=== PATIENT | male | born 1970 | race Asian ===

== ENCOUNTER 2017-03-01 10:02 | Emergency (ER) | payer MEDICAID ==
[~2017-03-01] VITALS: Ht 165.1 cm; Wt 95.0 kg
[~2017-03-01 10:02] MED LIST: FLO0.4C PO; ZOF4T PO
[2017-03-01 10:10] VITALS: BP 166/112
[2017-03-01] MEDS ORDERED: TOBR5DRO57 LEFTEYE (10:40)
[2017-03-01] MEDS ORDERED: proparacaine 0.5% ophthalmic drops 15ml LEFTEYE ONE (10:40)
== END 2017-03-01 10:51 | disposition home or self-care (01) ==
LOC: ER 10:03
DX: S05.02XA Injury of conjunctiva and corneal abrasion without foreign body, left eye, initial encounter (principal); Z79.899 Other long term (current) drug therapy; Y29.XXXA Contact with blunt object, undetermined intent, initial encounter; Y93.89 Activity, other specified; Y92.89 Other specified places as the place of occurrence of the external cause; Y99.8 Other external cause status
CPT/HCPCS: 99283

== ENCOUNTER 2017-09-05 12:49 | Emergency (ER) | payer MEDICAID ==
[~2017-09-05] VITALS: Ht 165.1 cm; Wt 95.5 kg
[2017-09-05 12:57] VITALS: BP 157/107
[2017-09-05] MEDS ORDERED: acetaminophen 325mg tablet PO ONE (13:10)
[2017-09-05] MEDS ORDERED: ketorolac trometh inj. 60 MG/2 ML VIAL IM ONE (13:10)
[2017-09-05] MEDS ORDERED: ondansetron 4mg rapidly disintigrating tab PO ONE (13:10)
[2017-09-05 13:23] LABS: BASOPHILS % (AUTO) 0.2 % (0-1); EOSINOPHILS # (AUTO) 0.3 X10'3 (0-0.9); EOSINOPHILS % (AUTO) 3.3 % (0-6); HEMATOCRIT 44.9 % (42.0-52.0); HEMOGLOBIN 15.2 g/dl (14.0-17.9); LYMPHOCYTES # (AUTO) 1.1 X10'3 (1.1-4.8); LYMPHOCYTES % (AUTO) 11.1 % (21-51); MEAN CORPUSCULAR HEMOGLOBIN 28.7 PG (27.0-31.0); MEAN CORPUSCULAR HGB CONC 33.8 % (33.0-36.5); MONOCYTES # (AUTO) 0.5 X10'3 (0-0.9); MONOCYTES % (AUTO) 4.8 % (2-12); NEUTROPHILS # (AUTO) 8.2 X10'3 (1.8-7.7); NEUTROPHILS % (AUTO) 80.6 % (42-75); PLATELET COUNT 230 X10'3 (140-440); RED BLOOD COUNT 5.28 X10'6 (4.70-6.10); RED CELL DISTRIBUTION WIDTH 14.8 % (11.5-14.5); WHITE BLOOD COUNT 10.2 X10'3 (4.5-11.0)
[2017-09-05 13:31] LABS: CLARITY,URINE SLIGHTLY CLOUDY (Clear); GLUCOSE, URINE NEGATIVE (Neg); KETONES,URINE NEGATIVE (Neg); LEUKOCYTE ESTERASE ,URINE NEGATIVE (Neg); NITRITES, URINE NEGATIVE (Neg); OCCULT BLOOD,URINE LARGE (Neg); PH,URINE 5.5 (4.8-8.0); PROTEIN,URINE TRACE mg/dl (Neg); UROBILINOGEN,URINE 0.2 E.U/dL (0.2-1.0)
[2017-09-05 13:33] LABS: COLOR,URINE YELLOW (Yellow); UA COLLECTION TYPE VOIDED
[2017-09-05 13:36] LABS: ALANINE AMINOTRANSFERASE 62 U/L (12-78); ALBUMIN 3.8 G/DL (3.4-5.0); ALBUMIN/GLOBULIN RATIO 0.7 (1.1-1.5); ALKALINE PHOSPHATASE 86 IU/L (46-116); ANION GAP 9 (8-16); ASPARTATE AMINO TRANSFERASE 42 U/L (10-37); BILIRUBIN,TOTAL 0.5 MG/DL (0.1-1.0); BLOOD UREA NITROGEN 20 MG/DL (7-18); CALCIUM 9.1 MG/DL (8.5-10.1); CHLORIDE 104 MMOL/L (99-107); CREATININE 1.66 MG/DL (0.60-1.10); GLUCOSE 123 MG/DL (70-104); POTASSIUM 4.4 MMOL/L (3.5-5.1); SODIUM 142 MMOL/L (135-145); TOTAL CARBON DIOXIDE 28.8 MMOL/L (24-32); TOTAL PROTEIN 9.3 G/DL (6.4-8.2); eGFR 44 ML/MIN
[2017-09-05 13:39] LABS: BACTERIA,URINE NONE SEEN /HPF (Neg); RBC,URINE TNTC /HPF (0-2); SQUAMOUS EPITHELIAL CELL,UR FEW /LPF (FEW)
[2017-09-05] MEDS ORDERED: ONDA8TAB9 PO (13:56)
[2017-09-05] MEDS ORDERED: HYDR-3965 PO (13:56)
== END 2017-09-05 14:22 | disposition home or self-care (01) ==
LOC: ER 12:49
DX: N23 Unspecified renal colic (principal); I10 Essential (primary) hypertension; Z90.49 Acquired absence of other specified parts of digestive tract; Z87.442 Personal history of urinary calculi; Z79.899 Other long term (current) drug therapy
CPT/HCPCS: 36415; 80053; 81001; 85025; 85610; 87088; 96372; 99284; J1885

== ENCOUNTER 2017-09-11 08:41 | Emergency (ER) | payer MEDICAID ==
[~2017-09-11] VITALS: Ht 165.1 cm; Wt 94.7 kg
[~2017-09-11 08:41] MED LIST changes: +HYDR-3965 PO; +ONDA8TAB9 PO
[2017-09-11 09:05] LABS: CLARITY,URINE CLOUDY (Clear); COLOR,URINE YELLOW (Yellow); GLUCOSE, URINE NEGATIVE (Neg); KETONES,URINE NEGATIVE (Neg); LEUKOCYTE ESTERASE ,URINE NEGATIVE (Neg); NITRITES, URINE POSITIVE (Neg); OCCULT BLOOD,URINE LARGE (Neg); PH,URINE 5.5 (4.8-8.0); PROTEIN,URINE TRACE mg/dl (Neg); UROBILINOGEN,URINE 0.2 E.U/dL (0.2-1.0)
[2017-09-11 09:07] LABS: UA COLLECTION TYPE VOIDED
[2017-09-11 09:13] LABS: BACTERIA,URINE FEW /HPF (Neg); MUCUS STRANDS NONE SEEN /LPF (Neg); RBC,URINE TNTC /HPF (0-2); SQUAMOUS EPITHELIAL CELL,UR NONE SEEN /LPF (FEW); WBC,URINE 0-4 /HPF (0-4)
[2017-09-11] MEDS ORDERED: ketorolac trometh. 30mg/ml inj. IM ONE (11:05)
[2017-09-11] MEDS ORDERED: tamsulosin 0.4mg capsule PO ONE (11:05)
[2017-09-11] MEDS ORDERED: FLO0.4C PO (11:07)
[2017-09-11] MEDS ORDERED: HYDR-3965 PO (11:07)
[2017-09-11 11:40] VITALS: BP 133/93
== END 2017-09-11 11:41 | disposition home or self-care (01) ==
LOC: ER 08:42
DX: N20.0 Calculus of kidney (principal); R10.31 Right lower quadrant pain; I10 Essential (primary) hypertension; Z90.49 Acquired absence of other specified parts of digestive tract; Z87.442 Personal history of urinary calculi; Z79.899 Other long term (current) drug therapy
CPT/HCPCS: 74176; 81001; 87088; 96372; 99285; J1885

== ENCOUNTER 2018-11-04 09:43 | Emergency (ER) | payer MEDICAID ==
[~2018-11-04] VITALS: Ht 165.1 cm; Wt 96.0 kg
[~2018-11-04 09:43] MED LIST changes: -HYDR-3965 PO; +HYDR-4383 PO; +IBUP-1986 PO
[2018-11-04] MEDS ORDERED: tamsulosin 0.4mg capsule PO ONE (10:15)
[2018-11-04] MEDS ORDERED: normal saline 1000ML IV soln IVB ONE (10:15)
[2018-11-04] MEDS ORDERED: ketorolac trometh. 30mg/ml inj. IV ONE (10:15)
[2018-11-04 10:24] LABS: CLARITY,URINE CLEAR (Clear); COLOR,URINE YELLOW (Yellow); GLUCOSE, URINE NEGATIVE (Neg); KETONES,URINE NEGATIVE (Neg); LEUKOCYTE ESTERASE ,URINE NEGATIVE (Neg); NITRITES, URINE NEGATIVE (Neg); OCCULT BLOOD,URINE LARGE (Neg); PH,URINE 5.5 (4.8-8.0); PROTEIN,URINE NEGATIVE (Neg); UROBILINOGEN,URINE 0.2 E.U/dL (0.2-1.0)
--- NOTE | 2018-11-04 10:30 | NUR ---
PT TO CT
[2018-11-04 10:38] LABS: UA COLLECTION TYPE CLN CATCH MIDSTREAM
[2018-11-04 10:39] LABS: BACTERIA,URINE NONE SEEN /HPF (Neg); MUCUS STRANDS NONE SEEN /LPF (Neg); RBC,URINE 20-50 /HPF (0-2); SQUAMOUS EPITHELIAL CELL,UR NONE SEEN /LPF (FEW); WBC,URINE NONE SEEN /HPF (0-4)
[2018-11-04 10:40] LABS: BASOPHILS % (AUTO) 0.3 % (0-1); EOSINOPHILS # (AUTO) 0.3 X10'3 (0-0.9); EOSINOPHILS % (AUTO) 4.3 % (0-6); LYMPHOCYTES % (AUTO) 13.8 % (21-51); MEAN CORPUSCULAR HEMOGLOBIN 28.3 PG (27.0-31.0); MEAN CORPUSCULAR HGB CONC 32.7 g/dL (33.0-36.5); MEAN CORPUSCULAR VOLUME 86.6 FL (78-98); MEAN PLATELET VOLUME 7.5 FL (7.4-10.4); MONOCYTES # (AUTO) 0.5 X10'3 (0-0.9); MONOCYTES % (AUTO) 6.3 % (2-12); NEUTROPHILS # (AUTO) 5.5 X10'3 (1.8-7.7); NEUTROPHILS % (AUTO) 75.3 % (42-75); PLATELET COUNT 200 X10'3 (140-440); RED BLOOD COUNT 4.97 X10'6 (4.70-6.10); RED CELL DISTRIBUTION WIDTH 15.4 % (11.5-14.5); WHITE BLOOD COUNT 7.3 X10'3 (4.5-11.0)
[2018-11-04 10:58] LABS: ALANINE AMINOTRANSFERASE 46 U/L (12-78); ALBUMIN 3.5 G/DL (3.4-5.0); ALBUMIN/GLOBULIN RATIO 0.6 (1.1-1.5); ALKALINE PHOSPHATASE 78 IU/L (46-116); ANION GAP 9 (8-16); ASPARTATE AMINO TRANSFERASE 25 U/L (10-37); BILIRUBIN,TOTAL 0.3 MG/DL (0.1-1.0); BLOOD UREA NITROGEN 32 MG/DL (7-18); BUN/CREATININE RATIO 15.4 (5.4-32.0); CALCIUM 8.8 MG/DL (8.5-10.1); CHLORIDE 106 MMOL/L (99-107); CREATININE 2.08 MG/DL (0.60-1.10); GLUCOSE 199 MG/DL (70-104); POTASSIUM 4.2 MMOL/L (3.5-5.1); SODIUM 139 MMOL/L (135-145); TOTAL CARBON DIOXIDE 24.2 MMOL/L (24-32); TOTAL PROTEIN 8.9 G/DL (6.4-8.2); eGFR 34 ML/MIN
[2018-11-04] MEDS ORDERED: FLO0.4C PO (11:10)
[2018-11-04] MEDS ORDERED: IBUP-1986 PO (11:10)
[2018-11-04] MEDS ORDERED: HYDR-4353 PO (11:10)
[2018-11-04 11:29] VITALS: BP 136/92
== END 2018-11-04 11:30 | disposition home or self-care (01) ==
LOC: ER 09:43
DX: N13.2 Hydronephrosis with renal and ureteral calculous obstruction (principal); I10 Essential (primary) hypertension; Z90.49 Acquired absence of other specified parts of digestive tract; Z79.899 Other long term (current) drug therapy
CPT/HCPCS: 36415; 74176; 80053; 81001; 85025; 96374; 99284; J1885; J7030

== ENCOUNTER 2019-05-26 09:02 | Emergency (ER) | payer MEDICAID ==
[~2019-05-26] VITALS: Ht 165.1 cm; Wt 93.0 kg
[2019-05-26] MEDS ORDERED: normal saline 1000ML IV soln IVB ONE (09:30)
[2019-05-26] MEDS ORDERED: ondansetron/PF 4mg/2ml inj IV ONE (09:30)
[2019-05-26] MEDS ORDERED: morphine 4 MG/ML inj SYRINge IV PRN (09:30)
[2019-05-26] MEDS ORDERED: ketorolac trometh. 30mg/ml inj. IV ONE (09:30)
[2019-05-26 09:35] LABS: CLARITY,URINE SLIGHTLY CLOUDY (Clear); COLOR,URINE YELLOW (Yellow); GLUCOSE, URINE NEGATIVE (Neg); KETONES,URINE NEGATIVE (Neg); LEUKOCYTE ESTERASE ,URINE NEGATIVE (Neg); NITRITES, URINE NEGATIVE (Neg); OCCULT BLOOD,URINE LARGE (Neg); PH,URINE 5.5 (4.8-8.0); PROTEIN,URINE 100 mg/dl (Neg); UROBILINOGEN,URINE 0.2 E.U/dL (0.2-1.0)
[2019-05-26 09:36] LABS: UA COLLECTION TYPE VOIDED
[2019-05-26 09:42] LABS: FINE GRANULAR CAST 0-3 /LPF (NEGATIVE)
[2019-05-26 09:49] LABS: RBC,URINE TNTC /HPF (0-2)
[2019-05-26 09:50] LABS: BACTERIA,URINE 1+ /HPF (Neg); SQUAMOUS EPITHELIAL CELL,UR FEW /LPF (FEW)
[2019-05-26 09:51] LABS: URIC ACID CRYSTALS 3+ /HPF (NEGATIVE)
[2019-05-26 09:57] LABS: BASOPHILS % (AUTO) 0.2 % (0-1); EOSINOPHILS # (AUTO) 0.1 X10'3 (0-0.9); EOSINOPHILS % (AUTO) 1.1 % (0-6); HEMATOCRIT 48.6 % (42.0-52.0); HEMOGLOBIN 15.7 g/dl (14.0-17.9); LYMPHOCYTES # (AUTO) 0.7 X10'3 (1.1-4.8); LYMPHOCYTES % (AUTO) 7.7 % (21-51); MEAN CORPUSCULAR HEMOGLOBIN 28.3 PG (27.0-31.0); MEAN CORPUSCULAR HGB CONC 32.3 g/dL (33.0-36.5); MEAN CORPUSCULAR VOLUME 87.6 FL (78-98); MEAN PLATELET VOLUME 8.4 FL (7.4-10.4); MONOCYTES # (AUTO) 0.6 X10'3 (0-0.9); MONOCYTES % (AUTO) 6.3 % (2-12); NEUTROPHILS # (AUTO) 7.6 X10'3 (1.8-7.7); NEUTROPHILS % (AUTO) 84.7 % (42-75); PLATELET COUNT 198 X10'3 (140-440); RED BLOOD COUNT 5.55 X10'6 (4.70-6.10); RED CELL DISTRIBUTION WIDTH 15.3 % (11.5-14.5)
[2019-05-26 10:31] LABS: ALANINE AMINOTRANSFERASE 61 U/L (12-78); ALBUMIN 3.8 G/DL (3.4-5.0); ALBUMIN/GLOBULIN RATIO 0.7 (1.1-1.5); ALKALINE PHOSPHATASE 84 IU/L (46-116); ANION GAP 6 (8-16); ASPARTATE AMINO TRANSFERASE 43 U/L (10-37); BILIRUBIN,TOTAL 0.6 MG/DL (0.1-1.0); BLOOD UREA NITROGEN 24 MG/DL (7-18); BUN/CREATININE RATIO 13.7 (5.4-32.0); CHLORIDE 106 MMOL/L (99-107); CREATININE 1.75 MG/DL (0.60-1.10); GLUCOSE 135 MG/DL (70-104); LIPASE 206 U/L (73-393); POTASSIUM 3.8 MMOL/L (3.5-5.1); SODIUM 139 MMOL/L (135-145); TOTAL CARBON DIOXIDE 27.4 MMOL/L (24-32); TOTAL PROTEIN 9.4 G/DL (6.4-8.2); eGFR 41 ML/MIN
[2019-05-26 10:55] VITALS: BP 93/65
[2019-05-26] MEDS ORDERED: FLO0.4C PO (11:04)
[2019-05-26] MEDS ORDERED: HYDR-3965 PO (11:04)
== END 2019-05-26 10:58 | disposition home or self-care (01) ==
LOC: ER 09:03
DX: R10.84 Generalized abdominal pain (principal); R11.2 Nausea with vomiting, unspecified; I10 Essential (primary) hypertension; Z87.442 Personal history of urinary calculi; Z90.89 Acquired absence of other organs
CPT/HCPCS: 36415; 80053; 81001; 83690; 85025; 87088; 96374; 96375; 99284; J1885; J2270; J2405; J7030

== ENCOUNTER 2019-11-05 19:32 | Emergency (ER) | payer MEDICAID ==
[~2019-11-05] VITALS: Ht 165.1 cm; Wt 90.9 kg
[2019-11-05 20:55] LABS: BASOPHILS % (AUTO) 0.5 % (0-1); EOSINOPHILS # (AUTO) 0.3 X10'3 (0-0.9); EOSINOPHILS % (AUTO) 3.3 % (0-6); HEMOGLOBIN 13.9 g/dl (14.0-17.9); LYMPHOCYTES # (AUTO) 1.3 X10'3 (1.1-4.8); LYMPHOCYTES % (AUTO) 14.6 % (21-51); MEAN CORPUSCULAR HEMOGLOBIN 28.5 PG (27.0-31.0); MEAN CORPUSCULAR HGB CONC 32.4 g/dL (33.0-36.5); MEAN CORPUSCULAR VOLUME 88.2 FL (78-98); MEAN PLATELET VOLUME 7.8 FL (7.4-10.4); MONOCYTES # (AUTO) 0.6 X10'3 (0-0.9); MONOCYTES % (AUTO) 6.9 % (2-12); NEUTROPHILS # (AUTO) 6.6 X10'3 (1.8-7.7); NEUTROPHILS % (AUTO) 74.7 % (42-75); PLATELET COUNT 210 X10'3 (140-440); RED BLOOD COUNT 4.87 X10'6 (4.70-6.10); RED CELL DISTRIBUTION WIDTH 13.9 % (11.5-14.5); WHITE BLOOD COUNT 8.8 X10'3 (4.5-11.0)
[2019-11-05 21:04] LABS: ALANINE AMINOTRANSFERASE 40 U/L (12-78); ALBUMIN 3.6 G/DL (3.4-5.0); ALBUMIN/GLOBULIN RATIO 0.7 (1.1-1.5); ALKALINE PHOSPHATASE 76 IU/L (46-116); ANION GAP 6 (8-16); ASPARTATE AMINO TRANSFERASE 26 U/L (10-37); BILIRUBIN,TOTAL 0.2 MG/DL (0.1-1.0); BLOOD UREA NITROGEN 18 MG/DL (7-18); BUN/CREATININE RATIO 11.7 (5.4-32.0); CALCIUM 8.6 MG/DL (8.5-10.1); CHLORIDE 109 MMOL/L (99-107); CREATININE 1.54 MG/DL (0.60-1.10); GLUCOSE 98 MG/DL (70-104); LIPASE 124 U/L (73-393); POTASSIUM 3.4 MMOL/L (3.5-5.1); SODIUM 143 MMOL/L (135-145); TOTAL CARBON DIOXIDE 28.2 MMOL/L (24-32); TOTAL PROTEIN 8.5 G/DL (6.4-8.2); eGFR 48 ML/MIN
[2019-11-05 21:20] LABS: CLARITY,URINE CLOUDY (Clear); COLOR,URINE YELLOW (Yellow); GLUCOSE, URINE NEGATIVE (Neg); KETONES,URINE NEGATIVE (Neg); LEUKOCYTE ESTERASE ,URINE TRACE (Neg); NITRITES, URINE NEGATIVE (Neg); OCCULT BLOOD,URINE LARGE (Neg); PH,URINE 5.5 (4.8-8.0); PROTEIN,URINE TRACE mg/dl (Neg)
[2019-11-05 21:27] LABS: UA COLLECTION TYPE CLN CATCH MIDSTREAM
[2019-11-05 21:30] LABS: BACTERIA,URINE FEW /HPF (Neg); RBC,URINE TNTC /HPF (0-2); SQUAMOUS EPITHELIAL CELL,UR FEW /LPF (FEW); WBC,URINE 0-4 /HPF (0-4)
[2019-11-05] MEDS ORDERED: morphine 4 MG/ML inj SYRINge IV PRN (21:40)
[2019-11-05] MEDS ORDERED: normal saline 1000ML IV soln IVB ONE (21:40)
[2019-11-05] MEDS ORDERED: ondansetron/PF 4mg/2ml inj IV ONE (21:40)
[2019-11-05] MEDS ORDERED: tamsulosin 0.4mg capsule PO ONE (21:50)
[2019-11-05] MEDS ORDERED: tamsulosin 0.4mg capsule PO SCH (21:50)
[2019-11-05] MEDS ORDERED: FLO0.4C PO (21:53)
[2019-11-05] MEDS ORDERED: HYDR-4353 PO (21:53)
[2019-11-05] MEDS ORDERED: ONDA8TAB6 PO (21:53)
--- NOTE | 2019-11-05 22:21 | NUR ---
MED WAIT. GIVEN PAIN MEDS AND NAUSEA MEDS AND FLOWMAX. AND 1 LITER NS STARTED. PT TO BE DISCHARGED ONCE COMPLETED. WAITING IN PARKING LOT.
[2019-11-05 23:00] VITALS: BP 127/84
== END 2019-11-05 23:19 | disposition home or self-care (01) ==
LOC: ER 19:33
DX: N13.2 Hydronephrosis with renal and ureteral calculous obstruction (principal); R10.31 Right lower quadrant pain; I10 Essential (primary) hypertension; Z87.442 Personal history of urinary calculi; Z90.89 Acquired absence of other organs; Z79.899 Other long term (current) drug therapy
CPT/HCPCS: 36415; 80053; 81001; 83690; 85025; 96361; 96374; 96375; 99284; J2270; J2405; J7030

== ENCOUNTER 2021-07-15 06:29 | Emergency (ER) | payer MEDICAID ==
[~2021-07-15] VITALS: Ht 165.1 cm; Wt 90.9 kg
[~2021-07-15 06:29] MED LIST changes: +ONDA8TAB6 PO
[2021-07-15] MEDS ORDERED: ketorolac trometh. 30mg/ml inj. IM ONE (08:40)
[2021-07-15 09:57] LABS: CLARITY,URINE CLEAR (Clear); COLOR,URINE YELLOW (Yellow); GLUCOSE, URINE NEGATIVE (Neg); KETONES,URINE NEGATIVE (Neg); LEUKOCYTE ESTERASE ,URINE NEGATIVE (Neg); NITRITES, URINE NEGATIVE (Neg); OCCULT BLOOD,URINE LARGE (Neg); PH,URINE 5.5 (4.8-8.0); PROTEIN,URINE TRACE mg/dl (Neg); UROBILINOGEN,URINE 0.2 E.U/dL (0.2-1.0)
[2021-07-15 10:00] LABS: UA COLLECTION TYPE VOIDED
[2021-07-15 10:03] LABS: WBC,URINE NONE SEEN /HPF (0-4)
[2021-07-15 10:04] LABS: BACTERIA,URINE NONE SEEN /HPF (Neg); HYALINE CASTS 0-3 /LPF (NEGATIVE); MUCUS STRANDS FEW /LPF (Neg); SQUAMOUS EPITHELIAL CELL,UR FEW /LPF (FEW)
[2021-07-15] MEDS ORDERED: FLO0.4C PO (10:56)
[2021-07-15] MEDS ORDERED: HYDR-3965 PO (10:56)
[2021-07-15 11:22] VITALS: BP 118/70
== END 2021-07-15 11:06 | disposition home or self-care (01) ==
LOC: ER 06:29
DX: N23 Unspecified renal colic (principal); I10 Essential (primary) hypertension; Z87.442 Personal history of urinary calculi; Z90.89 Acquired absence of other organs; Z98.890 Other specified postprocedural states; Z79.899 Other long term (current) drug therapy
CPT/HCPCS: 81001; 96372; 99283; J1885

== ENCOUNTER 2022-10-26 11:55 | Emergency (ER) | payer MEDICAID ==
[~2022-10-26] VITALS: Ht 165.1 cm; Wt 95.5 kg
[2022-10-26 14:01] LABS: BILIRUBIN,URINE NEGATIVE (Neg); CLARITY,URINE CLOUDY (Clear); COLOR,URINE RED (Yellow); GLUCOSE, URINE NEGATIVE (Neg); KETONES,URINE NEGATIVE (Neg); LEUKOCYTE ESTERASE ,URINE NEGATIVE (Neg); NITRITES, URINE NEGATIVE (Neg); OCCULT BLOOD,URINE LARGE (Neg); PH,URINE 5.5 (4.8-8.0); PROTEIN,URINE 100 mg/dl (Neg); UROBILINOGEN,URINE 0.2 E.U/dL (0.2-1.0)
[2022-10-26 14:02] LABS: UA COLLECTION TYPE CLN CATCH MIDSTREAM
[2022-10-26 14:26] LABS: BACTERIA,URINE NONE SEEN /HPF (Neg); MUCUS STRANDS NONE SEEN /LPF (Neg); RBC,URINE TNTC /HPF (0-2); SQUAMOUS EPITHELIAL CELL,UR FEW /LPF (FEW); WBC,URINE 0-4 /HPF (0-4)
[2022-10-26 16:23] VITALS: BP 122/70; PULSE 68; RESP 16; TEMP 98; O2SAT 98
== END 2022-10-26 16:24 | disposition home or self-care (01) ==
LOC: ER 11:55
DX: N23 Unspecified renal colic (principal); I10 Essential (primary) hypertension; Z90.49 Acquired absence of other specified parts of digestive tract; Z98.890 Other specified postprocedural states; Z79.899 Other long term (current) drug therapy
CPT/HCPCS: 81001; 85025; 99283

== ENCOUNTER 2024-04-02 08:46 | Day surgery (SDC) | payer MEDICAID ==
[~2024-04-02] VITALS: Ht 165.1 cm; Wt 95.5 kg
[~2024-04-02 08:46] MED LIST changes: +ATOR40TA PO; -FLO0.4C PO; -HYDR-4383 PO; +HYDR12.55 PO; -IBUP-1986 PO; +LOSA25TA41 PO; +METF-436 PO; -ONDA8TAB6 PO; -ONDA8TAB9 PO; -ZOF4T PO
[2024-04-02 08:54] VITALS: BP 147/94; PULSE 63; RESP 18; TEMP 98.4
[2024-04-02] MEDS ORDERED: MIDAZolam 1 MG/ML 5ML VIAL ONE (10:34)
[2024-04-02] MEDS ORDERED: fentaNYL/PF 50MCG/1 ML 2ML syringe ONE (10:34)
[2024-04-02] MEDS ORDERED: propofol inj 20 ML IV ONE (11:09)
[2024-04-02 11:20] VITALS: BP 128/77; PULSE 79; RESP 15; O2SAT 95
[2024-04-02 11:30] VITALS: BP 109/75; PULSE 70; RESP 20; O2SAT 96
[2024-04-02 11:40] VITALS: BP 114/83; PULSE 68; RESP 18; O2SAT 96
[2024-04-02 11:50] VITALS: BP 115/83; PULSE 62; RESP 15; O2SAT 98
== END 2024-04-02 12:13 | disposition home or self-care (01) ==
LOC: GI LAB 08:46
PROVIDERS: ATTEND Internal Medicine Gastroenterology
DX: Z12.11 Encounter for screening for malignant neoplasm of colon (principal); D12.5 Benign neoplasm of sigmoid colon; D12.4 Benign neoplasm of descending colon; K57.30 Diverticulosis of large intestine without perforation or abscess without bleeding; K64.8 Other hemorrhoids; I10 Essential (primary) hypertension; E11.9 Type 2 diabetes mellitus without complications; Z79.84 Long term (current) use of oral hypoglycemic drugs; Z79.899 Other long term (current) drug therapy
CPT/HCPCS: 45380; 45385; 82948; J2250; J2704; J3010; J7030; Z7512; C1889

== ENCOUNTER 2024-06-26 11:52 | Emergency (ER) | payer MEDICAID ==
[~2024-06-26] VITALS: Ht 165.1 cm; Wt 95.5 kg
--- NOTE | 2024-06-26 12:44 | Physician Documentation ---
History of Present Illness ~ Chief Complaint: Urinary Symptoms Stated Complaint: KIDNEY STONES Time Seen by MD: 12:18 Primary Medical Doctor: tammi [facility] Mode of Arrival: POV, Ambulatory HPI 54-year-old male presenting with suprapubic and penile pain since yesterday. Patient states that the pain initially started in his lower abdomen and has now traveled down to his suprapubic area and even his penis. He states that he has a history of kidney stones and this feels exactly like that. He has been urinating and has noticed that his urine has been pink. He otherwise denies any fever, chills, nausea, vomiting or any other associated symptoms. Medication Reconciliation Allergies: Coded Allergies: No Known Allergies (Unverified , 06/26/24) Scheduled Atorvastatin Calcium* (Lipitor*), 1 TABLET PO HS, (Reported) Hydrochlorothiazide (Hydrochlorothiazide), 1 TAB PO DAILY, (Reported) Losartan Potassium (Losartan Potassium), 25 MG PO DAILY, (Reported) Metformin Hcl (Metformin Hcl), 1 TAB PO Q12H, (Reported) Past Medical History Past Medical History: No Pertinent History, Hypertension, Kidney Stones Past Surgical History: abdominal surgery, appendectomy Alcohol Use: Rarely Drug Use: none Lives In: Home Review of Systems All Other Systems at this time: Reviewed and Negative Physical Exam Vital Signs: Temperature: 98.2, Source: Oral, Heart Rate: 82, Respiratory Rate: 20, BP: 135/94, Pulse Oximetry: 94, Weight: 95.450 Oxygen Flow Rate: 0 Physical Exam I have reviewed the triage vitals. CONST: Well developed and well nourished. In no acute distress HENT: Head Atraumatic EYES: Pupils are equal, round and reactive to light. Normal conjunctiva NECK: Normal range of motion. Supple. CARDIO: Normal rate and regular rhythm. No murmurs, rubs, or gallops. S1, S2. PULM/CHEST: No respiratory distress. Lungs clear to auscultation. No wheeze ABD: Soft and nontender. Nondistended. Bowel sounds normal. No guarding. : Exam deferred MSK: No edema. No deformity. NEURO: Alert and oriented to person, place and time. Moving all extremities SKIN: Warm and dry. PSYCH: Normal mood and affect. Good eye contact. Progress Results/Orders Results/Orders Orders - DEHKORDI,BEHRANG H MD Ct Abdomen Pelvis (06/26/24 12:38) Completed Orders - MOE LEACH MD Cbc/Diff (06/26/24 12:07) BMP (06/26/24 12:07) Amylase (06/26/24 12:07) Lipase (06/26/24 12:07) CMP (06/26/24 12:07) Normal Saline 1000ml (Sodium Chloride 10 (06/26/24 12:40) Ketorolac Trometh 30mg/Ml Vial (Toradol (06/26/24 12:40) Ct Abdomen Pelvis (06/26/24 12:38) Tamsulosin Capsule (Flomax Capsule) (06/26/24 12:40) Ua W/Microscopic, Cult If Ind (06/26/24 13:12) Medications Received in ER Medications (Trade) Dose Ordered Sig/Guicho Route PRN Reason Start Time Stop Time Status Last Admin Dose Admin Sodium Chloride 1,000 ml @ 1,000 mls/hr ONCE ONCE IV 06/26/24 12:40 06/26/24 13:39 DC 06/26/24 12:51 1,000 MLS/HR (Toradol inj. 30mg/ml) 30 mg ONCE ONCE IV 06/26/24 12:40 06/26/24 12:41 DC 06/26/24 12:51 30 MG (Flomax capsule) 0.4 mg ONCE ONCE PO 06/26/24 12:40 06/26/24 12:41 DC 06/26/24 12:51 0.4 MG Vital Signs 06/26/24 06/26/24 06/26/24 06/26/24 12:12 12:20 12:23 12:51 Temp 98.2 98.2 Pulse 84 82 Resp 18 19 20 16 B/P (MAP) 135/94 135/94 (108) Pulse Ox 95 94 O2 Flow Rate 0 06/26/24 13:38 Temp 98.2 Pulse 71 Resp 23 B/P (MAP) 133/88 (103) Pulse Ox 94 O2 Flow Rate 0 Laboratory Tests Test 06/26/24 12:25 06/26/24 13:12 White Blood Count 5.8 Red Blood Count 4.99 Hemoglobin 14.5 Hematocrit 43.9 Mean Corpuscular Volume 88.1 Mean Corpuscular Hemoglobin 29.1 Mean Corpuscular Hemoglobin Concent 33.1 Red Cell Distribution Width 14.9 H Platelet Count 173 Mean Platelet Volume 8.4 Neutrophils (%) (Auto) 68.4 Lymphocytes (%) (Auto) 17.9 L Monocytes (%) (Auto) 8.2 Eosinophils (%) (Auto) 4.8 Basophils (%) (Auto) 0.7 Neutrophils # (Auto) 3.9 Lymphocytes # (Auto) 1.0 L Monocytes # (Auto) 0.5 Eosinophils # (Auto) 0.3 Basophils # (Auto) 0.0 CBC Comment Sodium Level 142 Potassium Level 3.7 Chloride Level 107 Carbon Dioxide Level 28.5 Anion Gap 7 L Blood Urea Nitrogen 27 H Creatinine 1.53 H Estimated GFR/1.73 m2 47 BUN/Creatinine Ratio 17.6 Glucose Level 144 H Calcium Level 9.0 Total Bilirubin 0.4 Aspartate Amino Transf (AST/SGOT) 39 H Alanine Aminotransferase (ALT/SGPT) 75 Alkaline Phosphatase 66 Total Protein 8.1 Albumin 3.3 L Globulin 4.8 H Albumin/Globulin Ratio 0.7 L Amylase Level 141 H Lipase 49 Chemistry Comments Urine Specimen Description Cln catch midstream Urine Color Yellow Urine Clarity Slightly cloudy Urine pH 6.0 Urine Specific Mcguffey 1.025 Urine Protein 100 H Urine Glucose (UA) Negative Urine Ketones Negative Urine Occult Blood Large H Urine Nitrite Negative Urine Bilirubin Negative Urine Urobilinogen 0.2 Urine Leukocyte Esterase Negative Urine RBC Tntc Urine WBC 0-4 Urine Squamous Epithelial Cells None seen Urine Bacteria 1+ Urine Culture Indicated Not ind Volume Urine Centrifuged 10 ml Urine Comment EKG/XRAY/CT/US/VASC/MRI CT : Impression Exam: CT CT ABDOMEN PELVIS History: kidney stones Comparison Study: None Technique: Multidetector spiral CT of the abdomen and pelvis was performed from lung bases to pubic symphysis. Imaging was performed without IV contrast. Axial, coronal and sagittal multiplanar reformats were obtained from the axial data set by the technologist. Radiation dose : Abdomen/Pelvis: CTDIvol 30 mGy, DLP 1673 mGy*cm. Findings: Evaluation of solid organs is limited due to lack of intravenous contrast use. Lung Bases: No acute or significant lung base finding. Normal heart size. No pleural or pericardial effusion. Liver: The liver is normal in size. No focal lesions. Gallbladder and biliary Tree: Unremarkable Spleen: Unremarkable Pancreas: The pancreas is grossly normal in appearance. Adrenal Glands: Unremarkable Kidneys: Punctate bilateral renal calculi. Mild right hydronephrosis and hydroureter with a calculus in the proximal right ureter measuring up to 2 mm. No left hydronephrosis. Left renal cyst. Bladder: Calculus in the dependent bladder measuring up to 3 mm. Bowel: The stomach is grossly normal in appearance. Small bowel and colon are normal in caliber and distribution. The appendix is not visualized; however, no secondary findings of acute appendicitis identified. Colonic diverticulosis. Ascites: Absent Lymphadenopathy: No mesenteric, retroperitoneal or periportal lymphadenopathy. Abdominal wall and Mesentery: Unremarkable. Vasculature: The visualized abdominal aorta is normal in size and caliber. Evaluation of abdominal and pelvic vessels is limited due to lack of intravenous contrast. Pelvic Organs: Unremarkable Musculoskeletal: No aggressive focal bony lesions, acute fractures or dislocation. IMPRESSION: 1. Mildly obstructing calculus in the proximal right ureter measuring up to 2 mm associated with mild right hydronephrosis and hydroureter. Other bilateral punctate nonobstructive renal calculi. Calculus in the bladder. Urology evaluation is recommended. Left renal cyst. Sigmoid diverticulosis. Radiation optimization: All CT scans at this facility use at least one of these dose optimization techniques: Automated exposure control mA and/or kV adjustment per patient size (includes targeted exams where dose is matched to clinical indication) or iterative reconstruction. HS:Y Medical Decision Making Additional Comment 54-year-old male presenting with pelvic pain secondary to a right ureteral calculus. This was seen on CT imaging. The stone is located in the right upper ureter but is only 2 mm and should pass on its own. For pain patient was medicated with 30 mg of IV ketorolac. He was also given 1 L of IV normal saline as well as 0.4 mg of tamsulosin. At this point the patient is pain-free. I educated the patient regarding the findings of his workup. I advised that given the size of the stone that should pass on its own but did recommend that he drink plenty of fluids and monitor for passage of the stone. I will also prescribe him Flomax to take for the next several days to facilitate further passing of the stone. Advised to monitor symptoms for improvement and resolution. Follow up with Urology as an outpatient. Return to the ED with any acutely worsening symptoms. Departure Disposition: HOME / SELF CARE / HOMELESS Impression: Primary Impression: Renal colic Condition: Improved Additional Instructions: Take medications as prescribed. Drink plenty of fluids. Monitor for passage of stone. Follow up with Urology should pain not improve. Return to the ED with any acutely worsening symptoms. Referrals: NO PRIMARY CARE PROVIDER (PCP) Prescriptions Hydrocodone Bit/Acetaminophen 5/325 MG ([place] 5/325 MG) 5 Mg/325 Mg Tablet 1 TAB PO Q12H PRN PRN for pain for 5 Days, #10 TAB Prov: MOE LEACH MD 06/26/24 Ibuprofen (Ibuprofen) 600 Mg Tablet 1 TAB PO Q8H for pain for 10 Days, #30 TAB 0 Refills with food Prov: MOE LEACH MD 06/26/24 Tamsulosin Hcl* (Flomax*) 0.4 Mg Cap.sr.24h 1 CAP PO DAILY for 30 Days, #30 CAP Prov: MOE LEACH MD 06/26/24 Signature Scribe Signature: 1 Attestation: 1 MOE LEACH MD Jun 26, 2024 12:44
[2024-06-26 12:47] LABS: BASOPHILS % (AUTO) 0.7 % (0-1); EOSINOPHILS # (AUTO) 0.3 X10'3 (0-0.9); EOSINOPHILS % (AUTO) 4.8 % (0-6); HEMATOCRIT 43.9 % (42.0-52.0); HEMOGLOBIN 14.5 g/dl (14.0-17.9); LYMPHOCYTES % (AUTO) 17.9 % (21-51); MEAN CORPUSCULAR HEMOGLOBIN 29.1 PG (27.0-31.0); MEAN CORPUSCULAR HGB CONC 33.1 g/dL (33.0-36.5); MEAN CORPUSCULAR VOLUME 88.1 FL (78-98); MEAN PLATELET VOLUME 8.4 FL (7.4-10.4); MONOCYTES # (AUTO) 0.5 X10'3 (0-0.9); MONOCYTES % (AUTO) 8.2 % (2-12); NEUTROPHILS # (AUTO) 3.9 X10'3 (1.8-7.7); NEUTROPHILS % (AUTO) 68.4 % (42-75); PLATELET COUNT 173 X10'3 (140-440); RED BLOOD COUNT 4.99 X10'6 (4.70-6.10); RED CELL DISTRIBUTION WIDTH 14.9 % (11.5-14.5); WHITE BLOOD COUNT 5.8 X10'3 (4.5-11.0)
[2024-06-26] MEDS: ketorolac trometh 30MG/ML vial 30 MG/ML VIAL IV ONE (12:51)
[2024-06-26] MEDS: tamsulosin 0.4mg capsule PO ONE (12:51)
[2024-06-26] MEDS: normal saline 1000ml 1,000 ML IV ONE (12:51)
[2024-06-26 12:58] LABS: ALANINE AMINOTRANSFERASE 75 U/L (12-78); ALBUMIN 3.3 G/DL (3.4-5.0); ALBUMIN/GLOBULIN RATIO 0.7 (1.1-1.5); ALKALINE PHOSPHATASE 66 IU/L (46-116); AMYLASE 141 U/L (25-115); ANION GAP 7 (8-16); ASPARTATE AMINO TRANSFERASE 39 U/L (10-37); BILIRUBIN,TOTAL 0.4 MG/DL (0.1-1.0); BLOOD UREA NITROGEN 27 MG/DL (7-18); BUN/CREATININE RATIO 17.6 (10.0-20.0); CHLORIDE 107 MMOL/L (99-107); CREATININE 1.53 MG/DL (0.60-1.10); GLUCOSE 144 MG/DL (70-104); LIPASE 49 U/L (16-77); POTASSIUM 3.7 MMOL/L (3.5-5.1); SODIUM 142 MMOL/L (135-145); TOTAL CARBON DIOXIDE 28.5 MMOL/L (24-32); TOTAL PROTEIN 8.1 G/DL (6.4-8.2); eCRCL 47 ML/MIN; eGFR 47 ML/MIN
[2024-06-26 13:27] LABS: BILIRUBIN,URINE NEGATIVE (Neg); CLARITY,URINE SLIGHTLY CLOUDY (Clear); COLOR,URINE YELLOW (Yellow); GLUCOSE, URINE NEGATIVE (Neg); KETONES,URINE NEGATIVE (Neg); LEUKOCYTE ESTERASE ,URINE NEGATIVE (Neg); NITRITES, URINE NEGATIVE (Neg); OCCULT BLOOD,URINE LARGE (Neg); PROTEIN,URINE 100 mg/dl (Neg); UROBILINOGEN,URINE 0.2 E.U/dL (0.2-1.0)
[2024-06-26 13:37] LABS: UA COLLECTION TYPE CLN CATCH MIDSTREAM
[2024-06-26 13:38] VITALS: TEMP 98.2
[2024-06-26 13:43] LABS: RBC,URINE TNTC /HPF (0-2); WBC,URINE 0-4 /HPF (0-4)
[2024-06-26 13:44] LABS: BACTERIA,URINE 1+ /HPF (Neg); SQUAMOUS EPITHELIAL CELL,UR NONE SEEN /LPF (FEW)
--- NOTE | 2024-06-26 14:09 | RADIOLOGY REPORT ---
Exam: CT CT ABDOMEN PELVIS History: kidney stones Comparison Study: None Technique: Multidetector spiral CT of the abdomen and pelvis was performed from lung bases to pubic symphysis. Imaging was performed without IV contrast. Axial, coronal and sagittal multiplanar reform ats were obtained from the axial data set by the technologist. Radiation dose : Abdomen/Pelvis: CTDIvol 30 mGy, DLP 1673 mGy*cm. Findings: Evaluation of solid organs is limited due to lack of intravenous contrast use. Lung Bases: No acute or significant lung base finding. Normal heart size. No pleural or pericardial effusion. Liver: The liver is normal in size. No focal lesions. Gallbladder and biliary Tree: Unremarkable Spleen: Unremarkable Pancreas: The pancreas is grossly normal in appearance. Adrenal Glands: Unremarkable Kidneys: Punctate bilateral renal calculi. Mild right hydronephrosis and hydroureter with a calculus in the proximal right ureter measuring up to 2 mm. No left hydronephrosis. Left renal cyst. Bladder: Calculus in the dependent bladder measuring up to 3 mm. Bowel: The stomach is grossly normal in appearance. Small bowel and colon are normal in caliber and d istribution. The appendix is not visualized; however, no secondary findings of acute appendicitis garrison ntified. Colonic diverticulosis. Ascites: Absent Lymphadenopathy: No mesenteric, retroperitoneal or periportal lymphadenopathy. Abdominal wall and Mesentery: Unremarkable. Vasculature: The visualized abdominal aorta is normal in size and caliber. Evaluation of abdominal a nd pelvic vessels is limited due to lack of intravenous contrast. Pelvic Organs: Unremarkable Musculoskeletal: No aggressive focal bony lesions, acute fractures or dislocation. IMPRESSION: 1. Mildly obstructing calculus in the proximal right ureter measuring up to 2 mm associated with mild right hydronephrosis and hydroureter. Other bilateral punctate nonobstructive renal calculi. Calculu s in the bladder. Urology evaluation is recommended. Left renal cyst. Sigmoid diverticulosis. Radiation optimization: All CT scans at this facility use at least one of these dose optimization samy hniques: Automated exposure control mA and/or kV adjustment per patient size (includes targeted exams where dose is matched to clinical indication) or iterative reconstruction. HS:Y
[2024-06-26] MEDS ORDERED: HYDR-3965 PO (14:38)
[2024-06-26] MEDS ORDERED: TAMS-55 PO (14:38)
[2024-06-26] MEDS ORDERED: IBUP-1985 PO (14:38)
[2024-06-26 15:03] VITALS: BP 130/80; PULSE 63; RESP 16; O2SAT 93
== END 2024-06-26 15:08 | disposition home or self-care (01) ==
LOC: ER 11:53
DX: N20.0 Calculus of kidney (principal); Z87.442 Personal history of urinary calculi; Z90.49 Acquired absence of other specified parts of digestive tract; I10 Essential (primary) hypertension
CPT/HCPCS: 36415; 74176; 80053; 81001; 82150; 83690; 85025; 96361; 96374; 99285; J1885; J7030

== ENCOUNTER 2024-09-06 08:58 | Emergency (ER) | payer MEDICAID ==
[~2024-09-06] VITALS: Ht 165.1 cm; Wt 96.3 kg
[~2024-09-06 08:58] MED LIST changes: +IBUP-1985 PO
[2024-09-06] MEDS ORDERED: iohexol 300mg/ml 100ml inj. ONE (09:23)
[2024-09-06 09:47] LABS: MEAN PLATELET VOLUME 7.8 FL (7.4-10.4); RED CELL DISTRIBUTION WIDTH 15.3 % (11.5-14.5)
[2024-09-06 09:52] VITALS: BP 130/87; PULSE 91; O2SAT 95
[2024-09-06] MEDS: ondansetron/PF 4mg/2ml inj IV ONE (09:57)
[2024-09-06] MEDS: normal saline 1000ML IV soln IVB ONE (09:57)
[2024-09-06 09:59] VITALS: RESP 18
[2024-09-06] MEDS: morphine 4 MG/ML inj SYRINge IV ONE (09:59)
[2024-09-06 10:03] LABS: CREATININE 1.47 MG/DL (0.60-1.10); TOTAL CARBON DIOXIDE 26.2 MMOL/L (24-32); eCRCL 49 ML/MIN; eGFR 50 ML/MIN
--- NOTE | 2024-09-06 10:24 | Physician Documentation ---
History of Present Illness Chief Complaint: Abdominal Pain Stated Complaint: ABD PAIN Time Seen by MD: 09:09 Primary Medical Doctor: frankie/ [facility] Source: patient Mode of Arrival: POV, Ambulatory Exam Limitations: no limitations HPI 54-year-old male with chief complaint left lower abdominal pain which he has describes as the same pain as when I have had a kidney stone. He has been taking [place] which temporarily will help with his pain. Pain started a week ago but has been getting progressively worse which is why he decided to come to the ER today. Denies any nausea, vomiting, diarrhea, constipation, blood in urine, pain with urination, fever or chills. Medication Reconciliation Allergies: Coded Allergies: No Known Allergies (Unverified , 09/06/24) Scheduled Atorvastatin Calcium* (Lipitor*), 1 TABLET PO HS, (Reported) Hydrochlorothiazide (Hydrochlorothiazide), 1 TAB PO DAILY, (Reported) Ibuprofen (Ibuprofen), 1 TAB PO Q8H Losartan Potassium (Losartan Potassium), 25 MG PO DAILY, (Reported) Metformin Hcl (Metformin Hcl), 1 TAB PO Q12H, (Reported) Past Medical History Past Medical History: Hypertension, Kidney Stones Past Surgical History: abdominal surgery, appendectomy Alcohol Use: Rarely Drug Use: none Lives In: Home Review of Systems All Other Systems at this time: Reviewed and Negative Physical Exam Vital Signs: Temperature: 98.2, Source: Oral, Heart Rate: 91, Respiratory Rate: 18, BP: 130/87, Pulse Oximetry: 95, Weight: 96.260 Physical Exam GENERAL: Alert, no acute distress. HEENT: NCAT, EOMI, PERRL, normal oropharynx, moist oral mucosa. NECK: Supple, trachea midline. CARDIAC: Regular rate and rhythm, no murmurs, rubs, or gallops. PV: Equal distal pulses. No lower extremity edema, cap refill less than 2 seconds. RESPIRATORY: Equal breath sounds, clear to auscultation bilaterally, no respiratory distress. GASTROINTESTINAL: Non distended, soft, +TTP IN LLQ, No guarding or rebound. MUSCULOSKELETAL: Normal range of motion, nontender, no swelling. Normal gait. NEUROLOGICAL: Awake, alert, and oriented x 3. SKIN: Warm/dry, no pallor, no rash. PSYCH: Alert and appropriate. Affect congruent with mood. Speech is clear. Good eye contact. Progress Progress Note COMPARISON: CT CT ABDOMEN PELVIS on DOS: 06/26/24 Technique: Multidetector spiral CT of the abdomen and pelvis was performed from lung bases to pubic symphysis. Intravenous contrast was administered during this examination. Portal venous imaging was obtained. Axial, coronal and sagittal multiplanar reformats were performed by the technologist on a separate workstation. Radiation Dose : Abdomen/Pelvis: CTDIvol 31 mGy, DLP 1712 mGy*cm. CONTRAST: Type of contrast: Omni 300 Contrast injected: 100 mL Findings: Lung Bases: Atelectasis and scarring in the lung bases. Moderate cardiomegaly. Liver: Diffuse hepatic steatosis. Gallbladder and biliary Tree: Unremarkable Spleen: Unremarkable Pancreas: The pancreas is normal in appearance without focal lesions or abnormal enhancement. Adrenal Glands: Unremarkable Kidneys: Punctate bilateral renal calculi. No hydronephrosis. Subcentimeter bilateral renal cysts. Bladder: Unremarkable Bowel: The stomach is grossly normal in appearance. Small bowel and colon are normal in caliber and distribution. The appendix is not visualized; however, no secondary findings of acute appendicitis identified. Sigmoid and descending colon diverticulosis. Wall thickening of the descending colon with associated stranding suggesting acute diverticulitis. No loculated abscess. Ascites: Absent Lymphadenopathy: No mesenteric, retroperitoneal or periportal lymphadenopathy. Abdominal wall and Mesentery: Stranding around the descending colon as above. Vasculature: The visualized abdominal aorta is normal in size and caliber. Abdominal and pelvic vessels demonstrate normal enhancement. Pelvic Organs: Unremarkable Musculoskeletal: No aggressive focal bony lesions, acute fractures or dislocation. IMPRESSION: 1. Wall thickening of the descending colon with adjacent stranding suggesting acute diverticulitis. No loculated abscess. Clinical correlation and continued follow-up is recommended. 2. Punctate bilateral renal calculi. No hydronephrosis. Subcentimeter bilateral renal cysts. Diffuse hepatic steatosis. Radiation optimization: All CT scans at this facility use at least one of these dose optimization techniques: Automated exposure control mA and/or kV adjustment per patient size (includes targeted exams where dose is matched to clinical indication) or iterative reconstruction. Results/Orders Results/Orders Orders - SMITA VEGA Ct Abdomen Pelvis (09/06/24 10:18) Urinalysis, Cult If Indicated (09/06/24 09:09) * Npo Now * (09/06/24 09:09) Completed Orders - SMITA VEGA Ct Abdomen Pelvis (09/06/24 10:18) Cbc/Diff (09/06/24 09:09) BMP (09/06/24 09:09) Normal Saline 1000ml (0.9% Sodium Chlori (09/06/24 09:10) Ondansetron Inj. (Zofran 4mg/2ml Vial) (09/06/24 09:10) Morphine 4mg/Ml Inj. (Morphine Inj.) (09/06/24 09:10) Iohexol 300mg/Ml 100ml Inj. (Omnipaque-3 (09/06/24 09:23) Medications Received in ER Medications (Trade) Dose Ordered Sig/Guicho Route PRN Reason Start Time Stop Time Status Last Admin Dose Admin (0.9% sodium chloride (NS) 1000ml IV soln) 1,000 ml ONCE ONCE IVB 09/06/24 09:10 09/06/24 09:12 DC 09/06/24 09:57 1,000 ML (morphine inj.) 4 mg ONCE ONCE IV 09/06/24 09:10 09/06/24 09:12 DC 09/06/24 09:59 4 MG (Zofran 4mg/2ml vial) 4 mg ONCE ONCE IV 09/06/24 09:10 09/06/24 09:12 DC 09/06/24 09:57 4 MG Vital Signs 09/06/24 09/06/24 09/06/24 09/06/24 09:06 09:52 09:52 09:59 Temp 98.2 98.2 Pulse 91 91 Resp 16 16 18 18 B/P (MAP) 139/87 130/87 (101) Pulse Ox 94 95 Laboratory Tests Test 09/06/24 09:34 White Blood Count 6.2 Red Blood Count 4.94 Hemoglobin 14.3 Hematocrit 43.8 Mean Corpuscular Volume 88.7 Mean Corpuscular Hemoglobin 29.0 Mean Corpuscular Hemoglobin Concent 32.7 L Red Cell Distribution Width 15.3 H Platelet Count 160 Mean Platelet Volume 7.8 Neutrophils (%) (Auto) 77.4 H Lymphocytes (%) (Auto) 11.9 L Monocytes (%) (Auto) 6.9 Eosinophils (%) (Auto) 3.3 Basophils (%) (Auto) 0.5 Neutrophils # (Auto) 4.8 Lymphocytes # (Auto) 0.7 L Monocytes # (Auto) 0.4 Eosinophils # (Auto) 0.2 Basophils # (Auto) 0.0 CBC Comment Sodium Level 139 Potassium Level 3.7 Chloride Level 106 Carbon Dioxide Level 26.2 Anion Gap 7 L Blood Urea Nitrogen 26 H Creatinine 1.47 H Estimated GFR/1.73 m2 50 BUN/Creatinine Ratio 17.7 Glucose Level 193 H Calcium Level 8.9 Albumin 3.2 L Chemistry Comments Medical Decision Making Differential Dx:Considerations: Include: AAA, Angina/MA, Aortic dissection, Appendicitis, Bowel obstruction, Cholangitis, Cholelithasis, Constipation, Diverticular disease, Esophageal rupture, Esophagitis, Gastritis/PUD, Gastroenteritis, GI hemorrhage, Hernia, Hepatitis, Inflammatory BD, Ischemic bowel, Pancreatitis, Porphyria, Testicular torsion, Trauma, intraabdominal, Urinary obstruction, Urinary tract infection, Urolithiasis, Other Additional Comments IMAGING STUDY SHOWED FINDINGS OF ACUTE DIVERTICULITIS. PATIENT HAS NO PERITONEAL SIGNS ON EXAM, HE IS AFEBRILE, WHITE BLOOD CELL COUNT NORMAL, NO EVIDENCE FOR ABSCESS OR PERFORATION ON IMAGING MAKING OUTPATIENT TREATMENT REASONABLE. Departure Time of Disposition: 11:37 Disposition: 01 HOME / SELF CARE / HOMELESS Impression: Primary Impression: Diverticulitis Additional Impression: Abdominal pain Qualified Codes: R10.32 - Left lower quadrant pain Condition: Stable Discharge Instructions: Diverticulitis, [id number] Additional Instructions: IMAGING STUDY SHOWED FINDINGS OF ACUTE DIVERTICULITIS. PATIENT HAS NO PERITONEAL SIGNS ON EXAM, HE IS AFEBRILE, WHITE BLOOD CELL COUNT NORMAL, NO EVIDENCE FOR ABSCESS OR PERFORATION ON IMAGING MAKING OUTPATIENT TREATMENT REASONABLE. TREATMENT RECOMMENDED: AUGMENTIN BOWEL REST-LIQUID DIET GRADUALLY ADVANCE TOLERATED LOW FIBER DIET UNTIL OFF ANTIBIOTICS AND SYMPTOMS RESOLVE IF YOU HAVE NOT HAD A COLONOSCOPY RECENTLY RECOMMEND COLONOSCOPY F/U WITH YOUR DOCTOR IN ONE WEEK RETURN TO ER IF SYMPTOMS WORSEN CT SCAN FINDINGS BELOW TO TAKE TO YOUR DOCTOR: COMPARISON: CT CT ABDOMEN PELVIS on DOS: 06/26/24 Technique: Multidetector spiral CT of the abdomen and pelvis was performed from lung bases to pubic symphysis. Intravenous contrast was administered during this examination. Portal venous imaging was obtained. Axial, coronal and sagittal multiplanar reformats were performed by the technologist on a separate workstation. Radiation Dose : Abdomen/Pelvis: CTDIvol 31 mGy, DLP 1712 mGy*cm. CONTRAST: Type of contrast: Omni 300 Contrast injected: 100 mL Findings: Lung Bases: Atelectasis and scarring in the lung bases. Moderate cardiomegaly. Liver: Diffuse hepatic steatosis. Gallbladder and biliary Tree: Unremarkable Spleen: Unremarkable Pancreas: The pancreas is normal in appearance without focal lesions or abnormal enhancement. Adrenal Glands: Unremarkable Kidneys: Punctate bilateral renal calculi. No hydronephrosis. Subcentimeter bilateral renal cysts. Bladder: Unremarkable Bowel: The stomach is grossly normal in appearance. Small bowel and colon are normal in caliber and distribution. The appendix is not visualized; however, no secondary findings of acute appendicitis identified. Sigmoid and descending colon diverticulosis. Wall thickening of the descending colon with associated stranding suggesting acute diverticulitis. No loculated abscess. Ascites: Absent Lymphadenopathy: No mesenteric, retroperitoneal or periportal lymphadenopathy. Abdominal wall and Mesentery: Stranding around the descending colon as above. Vasculature: The visualized abdominal aorta is normal in size and caliber. Abdominal and pelvic vessels demonstrate normal enhancement. Pelvic Organs: Unremarkable Musculoskeletal: No aggressive focal bony lesions, acute fractures or dislocation. IMPRESSION: 1. Wall thickening of the descending colon with adjacent stranding suggesting acute diverticulitis. No loculated abscess. Clinical correlation and continued follow-up is recommended. 2. Punctate bilateral renal calculi. No hydronephrosis. Subcentimeter bilateral renal cysts. Diffuse hepatic steatosis. Radiation optimization: All CT scans at this facility use at least one of these dose optimization techniques: Automated exposure control mA and/or kV adjustment per patient size (includes targeted exams where dose is matched to clinical indication) or iterative reconstruction. Referrals: NO PRIMARY CARE PROVIDER (PCP) Prescriptions Amox Tr/Potassium Clavulanate (Augmentin 875-125 Tablet) 1 Each Tablet 1 TAB PO Q12H for 10 Days, #20 TAB Prov: SMITA VEGA 09/06/24 Education Educated: Patient Educated regarding: diagnosis, treatment, need for follow up Signature Scribe Signature: aurelio Attestation: SMITA Judge Sep 06, 2024 10:24
[2024-09-06 10:36] LABS: LEUKOCYTE ESTERASE ,URINE NEGATIVE (Neg); NITRITES, URINE NEGATIVE (Neg); OCCULT BLOOD,URINE TRACE-INTACT (Neg)
[2024-09-06 10:50] LABS: UA COLLECTION TYPE CLN CATCH MIDSTREAM
--- NOTE | 2024-09-06 11:06 | RADIOLOGY REPORT ---
Exam: CT CT ABDOMEN PELVIS W/ IV CONTRAST History: left abdominal pain like when he has had a kidney stone COMPARISON: CT CT ABDOMEN PELVIS on DOS: 06/26/24 Technique: Multidetector spiral CT of the abdomen and pelvis was performed from lung bases to pubic symphysis. Intravenous contrast was administered during this examination. Portal venous imaging was obtained. Axial, coronal and sagittal multiplanar reformats were performed by the technologist on a separate workstation. Radiation Dose : Abdomen/Pelvis: CTDIvol 31 mGy, DLP 1712 mGy*cm. CONTRAST: Type of contrast: Omni 300 Contrast injected: 100 mL Findings: Lung Bases: Atelectasis and scarring in the lung bases. Moderate cardiomegaly. Liver: Diffuse hepatic steatosis. Gallbladder and biliary Tree: Unremarkable Spleen: Unremarkable Pancreas: The pancreas is normal in appearance without focal lesions or abnormal enhancement. Adrenal Glands: Unremarkable Kidneys: Punctate bilateral renal calculi. No hydronephrosis. Subcentimeter bilateral renal cysts. Bladder: Unremarkable Bowel: The stomach is grossly normal in appearance. Small bowel and colon are normal in caliber and d istribution. The appendix is not visualized; however, no secondary findings of acute appendicitis garrison ntified. Sigmoid and descending colon diverticulosis. Wall thickening of the descending colon with as sociated stranding suggesting acute diverticulitis. No loculated abscess. Ascites: Absent Lymphadenopathy: No mesenteric, retroperitoneal or periportal lymphadenopathy. Abdominal wall and Mesentery: Stranding around the descending colon as above. Vasculature: The visualized abdominal aorta is normal in size and caliber. Abdominal and pelvic vess els demonstrate normal enhancement. Pelvic Organs: Unremarkable Musculoskeletal: No aggressive focal bony lesions, acute fractures or dislocation. IMPRESSION: 1. Wall thickening of the descending colon with adjacent stranding suggesting acute diverticulitis. N o loculated abscess. Clinical correlation and continued follow-up is recommended. 2. Punctate bilateral renal calculi. No hydronephrosis. Subcentimeter bilateral renal cysts. Diffuse hepatic steatosis. Radiation optimization: All CT scans at this facility use at least one of these dose optimization samy hniques: Automated exposure control mA and/or kV adjustment per patient size (includes targeted exams where dose is matched to clinical indication) or iterative reconstruction. HS:Y
[2024-09-06 11:13] LABS: SQUAMOUS EPITHELIAL CELL,UR FEW /LPF (FEW)
[2024-09-06] MEDS ORDERED: AMOX-117 PO (11:38)
[2024-09-06] MEDS: amox tr/potassium clavulanate 875/125mg TAB PO ONE (11:44)
[2024-09-06 11:48] VITALS: TEMP 98.2
== END 2024-09-06 12:43 | disposition home or self-care (01) ==
LOC: ER 08:58
DX: K57.32 Diverticulitis of large intestine without perforation or abscess without bleeding (principal); I10 Essential (primary) hypertension; Z90.49 Acquired absence of other specified parts of digestive tract; Z79.899 Other long term (current) drug therapy; Z87.442 Personal history of urinary calculi; Z79.84 Long term (current) use of oral hypoglycemic drugs
CPT/HCPCS: 36415; 74177; 80048; 81001; 85025; 96361; 96374; 96375; 99285; J2270; J2405; J7030; Q9967

== ENCOUNTER 2025-01-31 16:55 | Emergency (ER) | payer MEDICAID ==
[~2025-01-31] VITALS: Ht 165.1 cm; Wt 98.0 kg
[~2025-01-31 16:55] MED LIST changes: -IBUP-1985 PO; +IBUP600T52 PO
[2025-01-31 18:05] LABS: MEAN PLATELET VOLUME 8.0 FL (7.4-10.4); RED CELL DISTRIBUTION WIDTH 16.3 % (11.5-14.5)
[2025-01-31 18:22] LABS: CREATININE 1.49 MG/DL (0.60-1.10); TOTAL CARBON DIOXIDE 29.5 MMOL/L (24-32); eCRCL 48 ML/MIN; eGFR 49 ML/MIN
--- NOTE | 2025-01-31 18:33 | Physician Documentation ---
History of Present Illness ~ Chief Complaint: Vomiting Stated Complaint: FOOD POISIONING Time Seen by MD: 17:24 OK to notify your PCP?: Yes Primary Medical Doctor: frankie/ karlee felder [facility] Source: patient Mode of Arrival: POV Exam Limitations: no limitations HPI 55-year-old male who reports 3hours after eating mushrooms which he collected from "the wild" he started to feel "out of it" and reports nausea and diarrhea. He also ate them last night. ate same mushrooms, but reports a lot less, and states she is asymptomatic. Patient admits to having no formal training on mushrooms and initially states he ate mushrooms called "joshua bullock" but upon further questions he admits he does not know and realizes that the photos of jasvir bullock's mushrooms look nothing like the ones he found and ate. He states he sauteed the mushrooms in a frying pacheco. He denies fever, chills, chest pain, sob, lightheadedness, syncope, abdominal pain, urinary symptoms, rashes. Medication Reconciliation Allergies: Coded Allergies: No Known Allergies (Unverified , 01/31/25) Scheduled Atorvastatin Calcium* (Lipitor*), 1 TABLET PO HS, (Reported) Hydrochlorothiazide (Hydrochlorothiazide), 1 TAB PO DAILY, (Reported) Ibuprofen (Ibuprofen), 1 TAB PO Q8H Losartan Potassium (Losartan Potassium), 25 MG PO DAILY, (Reported) Metformin Hcl (Metformin Hcl), 1 TAB PO Q12H, (Reported) Past Medical History Past Medical History: Hypertension, Kidney Stones Past Surgical History: abdominal surgery, appendectomy Alcohol Use: Rarely Drug Use: none Lives In: Home Review of Systems All Other Systems at this time: Reviewed and Negative Physical Exam Vital Signs: Temperature: 97.6, Source: Temporal, Heart Rate: 95, Respiratory Rate: 15, BP: 154/98, Pulse Oximetry: 98, Weight: 98.000 Physical Exam GENERAL: APPEARS DROWSY AND NAUSEATED, HOLDING EMESIS BAG WHICH IS CURRENTLY EMPTY HEENT: NCAT, EOMI, PERRL, normal oropharynx, moist oral mucosa. NECK: Supple, trachea midline. CARDIAC: Regular rate and rhythm, no murmurs, rubs, or gallops. Equal distal p ulses. No lower extremity edema, cap refill less than 2 seconds. RESPIRATORY: Equal breath sounds, clear to auscultation bilaterally, no respiratory distress. GASTROINTESTINAL: Non distended, soft, nontender, No guarding or rebound. MUSCULOSKELETAL: Normal range of motion, nontender, no swelling. Normal gait. NEUROLOGICAL: Awake, alert, and oriented x 3. cn 2-12 intact. SKIN: Warm/dry, no pallor, no rash. PSYCH: Alert and appropriate. Affect congruent with mood. Speech is clear. Good eye contact. Procedures Procedures POISON CONTROL CONTACTED AND RECOMMENDED: CBC, CMP, LIVER PANEL. COAGULATION L ABS AND CK LEVEL NOT MENTIONED BY POISON CONTROL. Progress Results/Orders Results/Orders Completed Orders - HENRY VILLAREAL DO Stat Ekg (01/31/25 ) Drug Screen, Urine (01/31/25 20:11) Ua W/Microscopic, Cult If Ind (01/31/25 20:05) Vital Signs 01/31/25 01/31/25 01/31/25 01/31/25 17:30 19:11 19:16 20:03 Temp 97.6 Pulse 95 98 99 Resp 15 17 18 17 B/P (MAP) 154/98 167/90 (115) 160/99 (119) Pulse Ox 98 97 94 O2 Flow Rate 0 0 01/31/25 22:40 Pulse 101 Resp 16 B/P (MAP) 124/85 (98) Pulse Ox 95 O2 Flow Rate 0 Laboratory Tests Test 01/31/25 17:46 01/31/25 17:59 01/31/25 19:29 01/31/25 20:05 Prothrombin Time 10.8 INR International Normalized Ratio 1.1 Activated Partial Thromboplast Time 26 Coagulation Comments White Blood Count 6.6 Red Blood Count 5.17 Hemoglobin 14.8 Hematocrit 45.0 Mean Corpuscular Volume 87.1 Mean Corpuscular Hemoglobin 28.7 Mean Corpuscular Hemoglobin Concent 32.9 L Red Cell Distribution Width 16.3 H Platelet Count 203 Mean Platelet Volume 8.0 Neutrophils (%) (Auto) 75.3 H Lymphocytes (%) (Auto) 14.6 L Monocytes (%) (Auto) 7.0 Eosinophils (%) (Auto) 2.5 Basophils (%) (Auto) 0.6 Neutrophils # (Auto) 5.0 Lymphocytes # (Auto) 1.0 L Monocytes # (Auto) 0.5 Eosinophils # (Auto) 0.2 Basophils # (Auto) 0.0 CBC Comment Sodium Level 143 141 Potassium Level 4.0 4.1 Chloride Level 108 H 105 Carbon Dioxide Level 29.5 27.9 Anion Gap 6 L 8 Blood Urea Nitrogen 30 H 29 H Creatinine 1.49 H 1.51 H Estimated GFR/1.73 m2 49 48 BUN/Creatinine Ratio 20.1 H 19.2 Glucose Level 115 H 143 H Calcium Level 8.5 8.7 Total Bilirubin 0.5 0.5 Aspartate Amino Transf (AST/SGOT) 68 H 71 H Alanine Aminotransferase (ALT/SGPT) 95 H 99 H Alkaline Phosphatase 77 83 Total Protein 8.7 H 9.0 H Albumin 3.5 3.6 Globulin 5.2 H 5.4 H Albumin/Globulin Ratio 0.7 L 0.7 L Chemistry Comments Ammonia < 10 L Urine Specimen Description Cln catch midstream Urine Color Yellow Urine Clarity Clear Urine pH 7.5 Urine Specific [place] 1.020 Urine Protein 100 H Urine Glucose (UA) Negative Urine Ketones Negative Urine Occult Blood Trace-intact Urine Nitrite Negative Urine Bilirubin Negative Urine Urobilinogen 0.2 Urine Leukocyte Esterase Negative Urine RBC 0-2 Urine WBC None seen Urine Squamous Epithelial Cells None seen Urine Bacteria Few Urine Culture Indicated Not ind Volume Urine Centrifuged 10 ml Urine Comment Urine Opiates Screen Negative Urine Methadone Screen Negative Urine Fentanyl Screen Negative Urine Barbiturates Screen Negative Urine Phencyclidine Screen Negative Urine Amphetamines Screen Negative Urine Benzodiazepines Screen Negative Urine Cocaine Screen Negative Urine Cannabinoids Screen Negative Drug Screen Comment Medical Decision Making Additional information obtaine: N/A Findings n/a Diff Dx GI Bleed:Consideration: Unlikely: Other Diff Dx Pain:Considerations: Unlikely: Other Diff Dx N/V/D:Considerations: Include: Appendicitis, Bowel obstruction, Dehydration, DKA, Diarrhea - bacterial, Diarrhea - parasitic, Diarrhea - viral, Diverticulitis, Diverticulosis, Drug toxicity, Electrolyte imbalance, Food poisoning, Gastroenteritis, GE reflux, GI bleed, Hepatitis, Hernia, Hypovolemia, Hypotension, Inflammatory BD, Impaction, Malnutrition, Pancreatitis, PUD, Renal failure, Urinary obstruction, UTI, Urolithiasis, Other Diff Dx Rectal:Considerations: Unlikely: Other Departure Disposition: 30 STILL A PATIENT Impression: Primary Impression: Mushrooms causing toxic effect Qualified Codes: T62.0X1A - Toxic effect of ingested mushrooms, accidental (unintentional), initial encounter Additional Impression: Elevated liver enzymes Condition: Fair Discharge Instructions: Food Poisoning Additional Instructions: You need to return immediately if his symptoms recur. Do not eat wild mushrooms unless you are well-versed in mushroom hunting. Certain mushrooms, such as deathcap mushroom, will cause certain . Referrals: NO PRIMARY CARE PROVIDER (PCP) Education Educated: Patient Educated regarding: diagnosis, treatment, need for follow up Additional Comment Additional Comment Date: Feb 01, 2025 Time: 01:53 Additional note by Henry Villareal, DO: I took over the care of this patient from previous physician. I reviewed any previous notes available, obtain my own history, review of systems and physical examination was performed by myself. This is a 55-year-old gentleman who presented for evaluation of nausea and vomiting after eating mushrooms that he collected in the wild. The nausea or vomiting has a improved. Started out a proximally 12 hours after he ate the 1st bactc mushrooms and 3 hours after he ate a 2nd batch of sedated mushrooms. No palliating or aggravating factors were elicited. With the time I took over care of this patient he has nausea vomiting has been pins. The poison control was contacted. Initially there was concern that the patient had consumed that is kept mushrooms. Laboratory workup was obtained. He had slight transaminitis. 4 hour metabolic panel was obtained as well. No si gnificant change. We re-contacted poison control. They do not recommend N- acetylcysteine or silibinin. They recommend supportive measures. On reassessment patient is feeling markedly better. He looked at the picture of kept mushroom and feels that this was not the cap as it does not have the smaller ruffle under the cap itself. He is desiring to go home. Patient is hemodynamically stable for discharge home with follow with their primary care provider. [ ] Specific and cautious return precautions provided and discussed with full understanding. Any incidental findings were also discussed and follow up recommendations given. [] All questions answered. Patient/family were able to verbalize back return precautions. Patient/family agree to plan. Copies of imaging and laboratory studies were provided. Signature Scribe Signature: X Attestation: handed off to Dr. Pacheco at 19:00 The note accurately reflects work and decisions made by me.Smita CRESPO 01/31/25 19:08 The note accurately reflects work and decisions made by me.Henry Villareal DO 02/01/25 01:57 SMITA VEGA Jan 31, 2025 18:33 HENRY VILLRAEAL DO Feb 01, 2025 01:58
[2025-01-31 19:59] LABS: APTT 26 SECONDS (22-32); INR 1.1 INR
--- NOTE | 2025-01-31 20:05 | ELECTROCARDIOGRAPH REPORT ---
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 ARIELLE Fenton Measurements Intervals [place]er Rate: 100 P: 51 NC: 195 QRS: 66 QRSD: 104 T: 30 QT: 374 QTc: 483 Interpretive Statements Sinus tachycardia Borderline prolonged QT interval Electronically Signed On 02-02-2025 13:08:[address] ARIELLE Fenton Please click the below link to view image of tracing.
[2025-01-31 20:26] LABS: LEUKOCYTE ESTERASE ,URINE NEGATIVE (Neg); NITRITES, URINE NEGATIVE (Neg); OCCULT BLOOD,URINE TRACE-INTACT (Neg); UA COLLECTION TYPE CLN CATCH MIDSTREAM
[2025-01-31 20:47] LABS: SQUAMOUS EPITHELIAL CELL,UR NONE SEEN /LPF (FEW)
[2025-01-31 21:05] LABS: URINE AMPHETAMINE SCREEN NEGATIVE (Neg); URINE BARBITUATE SCREEN NEGATIVE (Neg); URINE BENZODIAZEPINES SCREEN NEGATIVE (Neg); URINE CANNABINOID SCREEN NEGATIVE (Neg); URINE COCAINE SCREEN NEGATIVE (Neg); URINE METHADONE SCREEN NEGATIVE (Neg); URINE OPIATE SCREEN NEGATIVE (Neg); URINE PHENCYCLIDINE SCREEN NEGATIVE (Neg)
[2025-01-31 21:06] LABS: CREATININE 1.51 MG/DL (0.60-1.10); TOTAL CARBON DIOXIDE 27.9 MMOL/L (24-32); eCRCL 47 ML/MIN; eGFR 48 ML/MIN
[2025-02-01 02:25] VITALS: TEMP 97.6
[2025-02-01 02:30] VITALS: BP 143/97; PULSE 92; RESP 15; O2SAT 94
== END 2025-02-01 02:33 | disposition home or self-care (01) ==
LOC: ER 16:56
DX: T62.0X1A Toxic effect of ingested mushrooms, accidental (unintentional), initial encounter (principal); R06.02 Shortness of breath; I10 Essential (primary) hypertension; Z79.899 Other long term (current) drug therapy; Z87.440 Personal history of urinary (tract) infections; Z90.49 Acquired absence of other specified parts of digestive tract; X58.XXXA Exposure to other specified factors, initial encounter; Y93.89 Activity, other specified; Y92.89 Other specified places as the place of occurrence of the external cause; Y99.8 Other external cause status
CPT/HCPCS: 36415; 80053; 80305; 81001; 82140; 85025; 85610; 85730; 93005; 99285; J7030